=== PATIENT | female | born 1975 | race Two or more races ===

== ENCOUNTER 2021-03-23 17:15 | Emergency (ER) | payer OTHER ==
[~2021-03-23] VITALS: Ht 154.9 cm; Wt 79.8 kg
--- NOTE | 2021-03-23 17:30 | NUR ---
assumed care of pt. pt here for numbness to L side of face S/O today. pt has mild L sided paralysis. no difficulty breathing speaking or swallowing. no loss or change of vision, no dizziness. pt A&O x4. So at bedside. Dr. Turcios at bedside for eval
[2021-03-23 18:08] VITALS: BP 140/80
== END 2021-03-23 18:13 | disposition home or self-care (01) ==
LOC: ED 18:04
DX: G51.0 Bell's palsy (principal)
CPT/HCPCS: 99283